=== PATIENT | female | born 1990 | race Caucasian/White ===

== ENCOUNTER 2018-02-25 11:21 | Emergency (ER) | payer OTHER ==
[~2018-02-25] VITALS: Ht 170.2 cm; Wt 113.4 kg
[2018-02-25 12:39] LABS: ABSOLUTE NEUTROPHILS 11.1 thou/uL (1.4-8.2); BASOPHILS 0.6 % (0.0-2.0); EOSINOPHILS 0.1 % (0.0-3.0); HEMOGLOBIN 15.3 gm/dL (12.0-15.0); LYMPHOCYTES 3.1 % (24.0-44.0); MCH 28.2 pg (26.0-34.0); MCV 82.9 fL (80.0-100.0); MONOCYTES 3.5 % (1.0-8.0); PLATELET COUNT 237 thou/uL (150-400); POLYS 92.7 % (36.0-66.0); RBC 5.43 mil/uL (4.20-5.00); RDW 13.2 % (10.5-14.5); WBC 11.9 thou/uL (4.0-11.0)
[2018-02-25 12:41] LABS: CALCIUM 9.1 mg/dL (8.5-10.1); CREATININE 0.9 mg/dL (0.6-1.0)
[2018-02-25 13:19] LABS: URINE BILIRUBIN NEGATIVE (Negative); URINE BLOOD NEGATIVE (Negative); URINE CLARITY CLEAR; URINE COLOR YELLOW; URINE GLUCOSE-RANDOM* NEGATIVE (Negative); URINE KETONES NEGATIVE (Negative); URINE LEUKOCYTES NEGATIVE (Negative); URINE NITRITE NEGATIVE (Negative); URINE PROTEIN (DIPSTICK) NEGATIVE (Negative); URINE UROBILINOGEN 0.2 E.U./dl (0.2-1.0)
[2018-02-25] MEDS ORDERED: ONDANSETRON HCL4 M2 PO (14:11)
[2018-02-25 14:26] VITALS: BP 124/80
== END 2018-02-25 14:28 | disposition home or self-care (01) ==
LOC: ER 11:21
PROVIDERS: Physician Assistant
DX: R19.7 Diarrhea, unspecified (principal); R11.2 Nausea with vomiting, unspecified; E86.0 Dehydration